=== PATIENT | female | born 1985 | race Caucasian/White ===

== ENCOUNTER → 2017-11-02 | Outpatient (CLI) | payer MEDICAID ==
[~2017-11-02] MED LIST: ALPR0.254; CPR500T PO; GLUC1KIT; HYDR1TAB PO; INSASP10V SQ; INSU100I10; INSU100I14; INSU100V6 SQ; LEVO175T2 PO; LEVO300T5; METO5TAB2; METR500T PO; NFPRILOC40 PO; ONDA4TAB8 SL; OXYC10TA7; SULF1TAB38 PO
[2017-11-02 15:42] LABS: BASOPHILS % (AUTO) 0 % (0-10); EOSINOPHILS % (AUTO) 2 % (0-10); HEMATOCRIT 32 % (35-52); HEMOGLOBIN 10.9 G/DL (11.5-16.0); LYMPHOCYTES # (AUTO) 0.3 X 10^3 (1.0-4.0); LYMPHOCYTES % (AUTO) 13 % (12-44); MEAN CORPUSCULAR HEMOGLOBIN 30 PG (25-34); MEAN CORPUSCULAR HGB CONC 34 G/DL (32-36); MEAN CORPUSCULAR VOLUME 87 FL (80-99); MEAN PLATELET VOLUME 10.6 FL (7.4-10.4); MONOCYTES # (AUTO) 0.4 X 10^3 (0.0-1.0); MONOCYTES % (AUTO) 16 % (0-12); NEUTROPHILS # (AUTO) 1.7 X 10^3 (1.8-7.8); NEUTROPHILS % (AUTO) 69 % (42-75); PLATELET COUNT 55 10^3/uL (130-400); RED BLOOD COUNT 3.64 10^6/uL (4.35-5.85); RED CELL DISTRIBUTION WIDTH 16.2 % (10.0-14.5); WHITE BLOOD COUNT 2.5 10^3/uL (4.3-11.0)
== END ==
LOC: LAB 15:20
PROVIDERS: ATTEND Surgery
DX: E10.622 Type 1 diabetes mellitus with other skin ulcer (principal); L98.492 Non-pressure chronic ulcer of skin of other sites with fat layer exposed; M32.10 Systemic lupus erythematosus, organ or system involvement unspecified
CPT/HCPCS: 36415; 85025

== ENCOUNTER → 2017-11-02 | Outpatient (CLI) | payer MEDICAID | LOC: WOUNDCARE 13:56 | PROVIDERS: ATTEND Surgery | DX: E10.622 Type 1 diabetes mellitus with other skin ulcer (principal); L98.492 Non-pressure chronic ulcer of skin of other sites with fat layer exposed; M32.10 Systemic lupus erythematosus, organ or system involvement unspecified | CPT/HCPCS: 99213 ==

== ENCOUNTER → 2017-11-11 | Outpatient (CLI) | payer MEDICAID ==
[2017-11-11 15:26] LABS: ALANINE AMINOTRANSFERASE 32 U/L (0-55); ALBUMIN 3.9 GM/DL (3.2-4.5); ALKALINE PHOSPHATASE 114 U/L (40-136); BILIRUBIN,TOTAL 1.4 MG/DL (0.1-1.0); BUN/CREATININE RATIO 14; CALCIUM 9.5 MG/DL (8.5-10.1); CARBON DIOXIDE 24 MMOL/L (21-32); CHLORIDE 100 MMOL/L (98-107); CREATININE SERUM 0.94 MG/DL (0.60-1.30); GFR ESTIMATED > 60; GLUCOSE 64 MG/DL (70-105); POTASSIUM 4.8 MMOL/L (3.6-5.0); SODIUM 136 MMOL/L (135-145); TOTAL PROTEIN 7.3 GM/DL (6.4-8.2)
== END ==
LOC: LAB 14:17
PROVIDERS: ATTEND Surgery
DX: E10.622 Type 1 diabetes mellitus with other skin ulcer (principal); L98.492 Non-pressure chronic ulcer of skin of other sites with fat layer exposed
CPT/HCPCS: 36415; 80053

== ENCOUNTER → 2017-11-11 | Outpatient (CLI) | payer MEDICAID | LOC: WOUNDCARE 12:28 | PROVIDERS: ATTEND Surgery | DX: E10.622 Type 1 diabetes mellitus with other skin ulcer (principal); L98.492 Non-pressure chronic ulcer of skin of other sites with fat layer exposed; M32.10 Systemic lupus erythematosus, organ or system involvement unspecified | CPT/HCPCS: 11042 ==

== ENCOUNTER → 2017-11-16 | Outpatient (CLI) | payer MEDICAID | LOC: WOUNDCARE 14:27 | PROVIDERS: ATTEND Surgery | DX: E10.622 Type 1 diabetes mellitus with other skin ulcer (principal); L98.492 Non-pressure chronic ulcer of skin of other sites with fat layer exposed; M32.10 Systemic lupus erythematosus, organ or system involvement unspecified | CPT/HCPCS: 99212 ==

== ENCOUNTER → 2017-11-23 | Outpatient (CLI) | payer MEDICAID | LOC: WOUNDCARE 14:29 | PROVIDERS: ATTEND Surgery | DX: E10.622 Type 1 diabetes mellitus with other skin ulcer (principal); L98.492 Non-pressure chronic ulcer of skin of other sites with fat layer exposed; M32.10 Systemic lupus erythematosus, organ or system involvement unspecified | CPT/HCPCS: 99212 ==

== ENCOUNTER → 2017-11-30 | Outpatient (CLI) | payer MEDICAID | LOC: WOUNDCARE 14:27 | PROVIDERS: ATTEND Surgery | DX: E10.622 Type 1 diabetes mellitus with other skin ulcer (principal); L98.492 Non-pressure chronic ulcer of skin of other sites with fat layer exposed; M32.10 Systemic lupus erythematosus, organ or system involvement unspecified | CPT/HCPCS: 99212 ==

== ENCOUNTER → 2017-12-21 | Outpatient (CLI) | payer MEDICAID | LOC: WOUNDCARE 14:26 | PROVIDERS: ATTEND Surgery | DX: E10.622 Type 1 diabetes mellitus with other skin ulcer (principal); L98.492 Non-pressure chronic ulcer of skin of other sites with fat layer exposed; M32.10 Systemic lupus erythematosus, organ or system involvement unspecified | CPT/HCPCS: 99212 ==

== ENCOUNTER → 2018-07-16 | Outpatient (CLI) | payer MEDICAID ==
[~2018-07-16] MED LIST changes: +IOHEXOL 350 MG/ML 100 ML (OMNIPAQUE 350) VIAL IV ONE; +NS 250 ML (IVPB) BAG IV ONE
[2018-07-16 12:40] LABS: BUN/CREATININE RATIO 11; CREATININE SERUM 0.92 MG/DL (0.60-1.30); GFR ESTIMATED > 60
--- NOTE | 2018-07-16 13:41 | Diagnostic Imaging Report ---
PROCEDURE: CT head with and without contrast. TECHNIQUE: Multiple contiguous axial images were obtained through the brain before and after the administration of intravenous contrast. DATE: July 16, 2018. COMPARISON: None. INDICATION: 32-year-old female, abnormal vision. FINDINGS: On the non contrast portion of the study, the entire superior margin of the brain is not entirely included within the [id number] of imaging. The superior aspect of the brain is completely included in the [id number] on the post contrast images. The ventricles and CSF spaces are normal in size and configuration for the patient's age. There is no abnormal extra-axial fluid collection. There is no acute intracranial hemorrhage. There is no mass effect or midline shift. There is no focally abnormally enhancing lesion intracranially. There is both arterial and venous vascular opacification. The frontal sinuses are hypoplastic. The visualized portions of the paranasal sinuses, mastoid air cells, and middle ears are well aerated. IMPRESSION: No identified acute intracranial abnormality. Dictated by: Dictated on workstation # [id number]
== END ==
LOC: RAD 11:55
PROVIDERS: ATTEND Nurse Practitioner Community Health
DX: L98.0 Pyogenic granuloma (principal); E11.9 Type 2 diabetes mellitus without complications
CPT/HCPCS: 36415; 70470; 82565; 84520

== ENCOUNTER → 2022-02-03 | Outpatient (CLI) | payer MEDICAID ==
[~2022-02-03] MED LIST changes: +ALPR.25T; -ALPR0.254; +ALTEPLASE 2 MG (CATHFLO) IV ONE; -IOHEXOL 350 MG/ML 100 ML (OMNIPAQUE 350) VIAL IV ONE; -NS 250 ML (IVPB) BAG IV ONE
[2022-02-03 13:35] VITALS: BP 117/83
--- NOTE | 2022-02-03 14:12 | Diagnostic Imaging Report ---
INDICATION: Port malfunction. Unable to pull blood or flush. EXAMINATION: Chest from 02/03/2022. FINDINGS: Single-view chest. There is a chest port on the right with the tip entering the right atrium. Tubing appears intact. Heart and pulmonary vasculature are normal. Lungs and pleural spaces are clear. No infiltrates, effusions, or pneumothorax. Tiny density in the peripheral right midlung, nonspecific. This should be followed. IMPRESSION: 1. Chest port is grossly unremarkable with the tip in the right atrium. 2. Tiny density in the peripheral right midlung. This could be followed to assure stability. Dictated by: Dictated on workstation # [id number]
== END ==
LOC: SDC 13:28
PROVIDERS: ATTEND Pediatrics
DX: Z45.2 Encounter for adjustment and management of vascular access device (principal); T82.9XXA Unspecified complication of cardiac and vascular prosthetic device, implant and graft, initial encounter
CPT/HCPCS: 71045; 96523